=== PATIENT | male | born 1970 | race Caucasian/White ===

== ENCOUNTER 2023-08-02 10:05 | Inpatient (IN) | payer OTHER, SELFPAY ==
--- NOTE | ~2023-08-02 | US_ITS ---
EXAMINATION: US ABDOMEN LIMITED CLINICAL INFORMATION: Right upper quadrant/epigastric pain. COMPARISON: None available. TECHNIQUE: Real-time imaging of the right upper quadrant abdominal viscera. Limited evaluation due to overlying bowel gas and rib shadowing. FINDINGS: LIVER: Liver was not formally interrogated but appears diffusely echogenic. GALLBLADDER: Contracted. Wall measures 6 mm with potential fluid. Shadowing stone in the region of the gallbladder neck. No tenderness elicited during study. COMMON BILE DUCT: Normal in caliber measuring 0.3 cm in diameter. FREE FLUID: None. US/US abdomen limited IMPRESSION: Contracted gallbladder. Gallbladder wall thickening. Gallbladder neck stone.
--- NOTE | ~2023-08-02 | CT_ITS ---
EXAMINATION: CT ABDOMEN AND PELVIS WITHOUT CONTRAST CLINICAL INFORMATION: Abdominal pain and diarrhea COMPARISON: None available. TECHNIQUE: Multidetector volumetric imaging was performed from the superior aspect of the liver through the pubic symphysis. Sagittal and coronal reformatted images were obtained on the technologist's workstation. This CT examination was performed using dose optimization techniques as appropriate, variously including the following: *Automated exposure control *Adjustment of mA and/or kV according to patient size (this includes techniques or standardized protocols for targeted exams where dose is matched to indication/reason for exam; i.e. extremities or head) *Use of iterative reconstruction technique DLP: 566 mGy-cm FINDINGS: TELEVISION PRODUCTION ASSISTANT: Moderate fecal retention. LUNG BASES: The visualized lung bases are unremarkable. Nonenlarged heart. No pericardial effusion. Heavy coronary calcifications. LIVER, GALLBLADDER, AND BILIARY TREE: The liver is normal in size, shape, and attenuation. No focal hepatic lesion or biliary ductal dilatation is present. Cholelithiasis without other CT evidence of gallbladder wall thickening, or obvious pericholecystic inflammatory changes. PANCREAS: Unremarkable. SPLEEN: Unremarkable. ADRENAL GLANDS: Unremarkable. KIDNEYS AND URETERS: The kidneys are normal in size, shape, and attenuation. No hydronephrosis or hydroureter. 4 mm nonobstructing right midpole renal calculus. Punctate nonobstructing left mid pole renal calculus. Nonspecific mild bilateral perinephric stranding. BLADDER: Distended. GASTROINTESTINAL TRACT: Distended with debris, otherwise unremarkable. Nonobstructive bowel pattern. Normal terminal ileum and appendix. Moderate fecal retention. No fluid-filled large bowel loops. ABDOMINAL WALL: Small fat filled umbilical hernia. LYMPH NODES: Normal. VASCULAR: Atherosclerotic calcifications nonaneurysmal aorta. Unremarkable inferior vena cava PELVIC VISCERA: Prostate calcifications. Phleboliths. OSSEOUS STRUCTURES: L5-S1 disc space narrowing with vacuum disc phenomena. CT/CT abdomen pelvis wo IV con IMPRESSION: Moderate fecal retention. Cholelithiasis without CT evidence of acute cholecystitis. Nonobstructing renal calculi, largest in the right midpole measures 4 mm. Distended urinary bladder. Fleischner guidelines were followed.
[2023-08-02 10:21] VITALS: BP 139/90; PULSE 100; RESP 16; TEMP 36.4; O2SAT 100; BMI 27.1
--- NOTE | 2023-08-02 10:30 | ECG_ITS ---
Test Reason : diarrhea, cardiac hx Blood Pressure : / mmHG Vent. Rate : 095 BPM Atrial Rate : 095 BPM P-R Int : 174 ms QRS Dur : 074 ms QT Int : 340 ms P-R-T Axes : 021 003 070 degrees QTc Int : 427 ms Normal sinus rhythm Possible Inferior infarct , age undetermined Nonspecific T wave abnormality Abnormal ECG T wave amplitude has decreased in Referred By: Generic ED Physician Electronically Signed By:LUIS CARLOS NEWTON MD
[2023-08-02 10:50] LABS: MANUAL DIFF FLAG NO
[2023-08-02 10:53] LABS: Appearance Urine Cloudy; Color Urine Yellow; Glucose Urine UA >=1000 mg/dL (Negative); Leukocyte Esterase Urine Negative (Negative); Nitrite Urine Negative (Negative); PH 5.5 (5.0-9.0); Specific Gravity - Urine 1.025 (1.005-1.025); UMIC TRIGGER UACC YES; Urine Blood Small (1+) (Negative); Urine Ketones Negative (Negative); Urine Protein 300 (3+) mg/dL (Neg-Trace)
[2023-08-02 10:55] LABS: Basophils Percent Auto 0.5 % (0-2); Eosinophils Absolute Auto 0.1 X10*3/uL (0.0-0.4); Eosinophils Percent Auto 2.2 % (0-4); Hematocrit 41.2 % (42.0-52.0); Hemoglobin 13.6 g/dl (14.0-18.0); Imm Gran Abs Auto 0.05 X10*3/uL (0.00-0.03); Imm Gran Pct Auto 0.8 % (0.0-0.4); Lymphocytes Absolute Auto 1.2 X10*3/uL (1.2-4.9); Lymphocytes Percent Auto 18.4 % (20-40); Mean Corpuscular Hemoglobin 27.6 pg (27.0-33.0); Mean Corpuscular Volume 83.6 fL (80.0-98.0); Mean Platelet Volume 9.2 fL (9.4-12.4); Monocytes Absolute Auto 0.5 X10*3/uL (0.1-1.2); Neutrophils Absolute Auto 4.6 x10*3/uL (2.0-8.3); Neutrophils Percent Auto 71.1 % (45-73); Platelet Count 244 X10*3/uL (160-400); Red Blood Count 4.93 X10*6/uL (4.60-5.80); White Blood Count 6.5 X10*3/uL (4.8-10.8)
[2023-08-02 11:05] LABS: Bacteria Urine None Seen (None Seen); RBC Urine 0-2 /HPF (0-2); Squamous Epithelial Cell Urine 0-2 /HPF (0-2); WBC Urine 0-5 /HPF (0-5)
[2023-08-02 11:06] LABS: Alanine Aminotransferase 55 U/L (0-40); Albumin Level 4.5 g/dL (3.5-5.0); Alkaline Phosphatase 97 U/L (39-117); Anion Gap 16 (12-20); Aspartate Amino Transferase 31 U/L (5-37); Bilirubin Direct 0.2 mg/dL (0.0-0.5); Bilirubin Total 0.5 mg/dL (0.0-1.0); Blood Urea Nitrogen 19 mg/dL (9-16); Calcium 9.7 mg/dL (8.4-10.2); Carbon Dioxide 21 mmol/L (22-29); Chloride 106 mmol/L (96-108); Creatinine Clr Calc Pharmacy 46.3; Estimated Glomerular Filt Rate 39; Glucose Random 215 mg/dL (60-115); Lipase 225 U/L (8-78); Potassium 3.9 mmol/L (3.3-5.1); Sodium 139 mmol/L (135-145); Total Protein 7.3 g/dL (6.5-8.0)
[2023-08-02 11:20] LABS: Troponin-I High Sensitivity < 2.7 ng/L (<3.5-35.0)
[2023-08-02 11:52] LABS: Erythrocyte Sedimentation Rate 7 MM/HR (0-15)
--- NOTE | 2023-08-02 13:46 | ED.GENADULT ---
HPI - General Adult General Chief complaint: General Medical Stated complaint: 5 months diarrhea,abd pain,fever Time Seen by Provider: 08/02/23 13:12 Source: patient Mode of arrival: ambulatory History of Present Illness HPI narrative: This is a 53-year-old male with history CKD followed by Dr. Downey, diabetes, HIV on Biktarvy and currently undetectable, all of his care is conducted through [facility]. Patient states that he had 2 stents placed in February and then began developing this intermittent diarrhea that has been worked up by his primary care doctor, he has been unable to be evaluated by a manager property, and states that this is been intermittent and ongoing since February and then over the past few days has become far worse in describes 5-6 episodes of diarrhea a day, patient is currently on Brilinta and states that he did have some evidence of blood within his stool. He denies any associated fever, chills denies any alcohol use denies any recent travel. Patient reports that this time the diarrhea has been associated with significant left upper quadrant and lower quadrant pain as well as epigastric pain. Related Data Allergies Allergy/AdvReac Type Severity Reaction Status Date / Time Unable to Assess Allergy Unverified 08/02/23 10:41 Review of Systems Review of Systems: Pertinent positives and negatives as stated in HPI [facility] Past Medical History Source: nursing notes reviewed Social History Social History Smoked in Last 30 Days: No Use of substances other than those prescribed or required for medical reasons: No Advance Directives: No Physical Exam ED Vital Signs: Vital Signs - 24 hr 08/02/23 10:21 08/02/23 15:08 08/02/23 16:37 Temperature 97.5 F Pulse Rate 100 91 Respiratory Rate 16 18 1 L Blood Pressure 139/90 H 127/84 Pulse Oximetry 100 99 Oxygen Delivery Method Room Air Room Air Room Air 08/02/23 16:39 Temperature Pulse Rate 91 Respiratory Rate Blood Pressure 105/56 L Pulse Oximetry 100 Oxygen Delivery Method Room Air BMI result Body Mass Index 27.1 VITAL SIGNS: Reviewed. GENERAL: Well developed, well nourished, in no acute distress. HEAD: Normocephalic/atraumatic EYES: PERRLA, EOMI EARS: Ext canals without abnormality NOSE: Nares patent bilateral OROPHARYNX: no oral lesions noted, posterior pharynx clear NECK: Supple, no adenopathy LUNGS: Normal breath sounds. No adventitious sounds or accessory muscle use. SpO2<100> CARDIOVASCULAR: Regular rate and rhythm without noted murmurs ABDOMEN: Soft, tenderness to palpation the epigastrium and left upper quadrant, +distended with bowel sounds. MUSCULOSKELETAL: No tenderness, deformities, or effusions noted on gross inspection. EXTREMITIES: No cyanosis, clubbing or edema. SKIN: Inspection of the skin reveals no rashes NEUROLOGIC: Alert and oriented x 4. Strength and sensation to light touch were grossly intact x 4. Medications Administered Discontinued Medications Generic Name Dose Route Start Last Admin Trade Name Freq PRN Reason Stop Dose Admin Sodium Chloride 1,000 mls @ 999 mls/hr 08/02/23 13:15 08/02/23 15:13 Ns IV 08/02/23 14:15 Infused .Q1H1M PETRA Infusion Medical Decision Making Medical Decision Making [facility] Narrative: 1330: 53-year-old male with history and clinical presentation, DDX: Gastroenteritis, diverticulitis, colitis, biliary pancreatitis, medication pancreatitis I reviewed all investigations and there is no leukocytosis or left shift, there is a normocytic anemia without significant reports of bleeding and on review of patient's prior lab work that was reviewed by me on his phone this is chronically stable. There is no thrombocytopenia. Chemistry indices demonstrate a stable CKD (once again I reviewed this on patient's [facility] chart) there is no evidence of electrolyte derangements and I sensitivity troponin is undetectable, triglycerides are not in the range to have been the cause of patient's pancreatitis which is demonstrated by both clinical exam as well as lipase elevation of 225. Patient does not have complaints of right upper quadrant pain so I have lower clinical suspicion that this is biliary pancreatitis. Awaiting CT scan without contrast as well as stool sample. CT scan not significant for acute intra-abdominal pathology to better explain patient's condition, although this had to be noncontrast secondary to patient's underlying CKD. There was noted cholelithiasis which prompted further evaluation with an ultrasound due to other obvious etiologies for the pancreatitis. Ultrasound is significant for a gallbladder neck stone as well as thickening and questionable fluid. 1617: I discussed the case with Dr. Godoy who accepts admission. I then discussed all results and findings as well as the plan with the patient at bedside. Differential Diagnosis Differential Diagnoses: The differential diagnosis associated with the presentation includes Please see the discussion above Admission/Observation Consideration of admission/observation: Escalation of care including admission/observation considered Please see the discussion above Consult Healthcare Provider Management of the patient was discussed with: [facility]rer And Tacker Please see the discussion above Lab Data MDM Lab Attestation statement: I reviewed the patient's lab results. Please see the discussion above 08/02/23 10:40 08/02/23 10:40 Labs: Lab Results 08/02/23 08/02/23 08/02/23 Range/Units 10:40 10:40 10:40 WBC 6.5 (4.8-10.8) X10*3/uL RBC 4.93 (4.60-5.80) X10*6/uL Hgb 13.6 L (14.0-18.0) g/dl Hct 41.2 L (42.0-52.0) % MCV 83.6 (80.0-98.0) fL MCH 27.6 (27.0-33.0) pg MCHC 33.0 (31.0-36.0) g/dl RDW 14.0 (11.0-16.0) % Plt Count 244 (160-400) X10*3/uL MPV 9.2 L (9.4-12.4) fL Immature Gran % (Auto) 0.8 H (0.0-0.4) % Neut % (Auto) 71.1 (45-73) % Lymph % (Auto) 18.4 L (20-40) % [place] % (Auto) 7.0 (2-11) % Eos % (Auto) 2.2 (0-4) % Baso % (Auto) 0.5 (0-2) % Lymph # (Auto) 1.2 (1.2-4.9) X10*3/uL [place] # (Auto) 0.5 (0.1-1.2) X10*3/uL Eos # (Auto) 0.1 (0.0-0.4) X10*3/uL Baso # (Auto) 0.0 (0.0-0.2) X10*3/uL Abs Immat Gran (auto) 0.05 H (0.00-0.03) X10*3/uL Absolute Neuts (auto) 4.6 (2.0-8.3) x10*3/uL Absolute Nucleated RBC 0.000 (0.0-0.012) X10*3/uL Nucleated RBC % (auto) 0.0 (0.0-0.2) /100WBC ESR 7 (0-15) MM/HR Sodium 139 (135-145) mmol/L Potassium 3.9 (3.3-5.1) mmol/L Chloride 106 (96-108) mmol/L Carbon Dioxide 21 L (22-29) mmol/L Anion Gap 16 (12-20) BUN 19 H (9-16) mg/dL Creatinine 1.80 H (0.5-1.4) mg/dL Estim Creat Clear Calc 46.3 Estimated GFR 39 Random Glucose 215 H (60-115) mg/dL Calcium 9.7 (8.4-10.2) mg/dL Magnesium 2.1 Cancelled (1.6-2.6) mg/dL Total Bilirubin 0.5 (0.0-1.0) mg/dL Direct Bilirubin 0.2 (0.0-0.5) mg/dL AST 31 (5-37) U/L ALT 55 H (0-40) U/L Alkaline Phosphatase 97 (39-117) U/L Troponin I High Sens < 2.7 (<3.5-35.0) ng/L Total Protein 7.3 (6.5-8.0) g/dL Albumin 4.5 (3.5-5.0) g/dL Triglycerides 153 H Cancelled (<150) mg/dL Cholesterol 89 (<200) mg/dL LDL Cholesterol, Calc (<100) mg/dL HDL Cholesterol (>40) mg/dL Lipase (8-78) U/L Urine Color Urine Appearance Urine pH (5.0-9.0) Ur Specific [place] (1.005-1.025) Urine Protein (Neg-Trace) mg/dL Urine Glucose (UA) (Negative) mg/dL Urine Ketones (Negative) mg/dL Urine Blood (Negative) Urine Nitrite (Negative) Ur Leukocyte Esterase (Negative) Urine RBC (0-2) /HPF Urine WBC (0-5) /HPF Ur Squamous Epith Cells (0-2) /HPF Urine Bacteria (None Seen) Hyaline Casts (0-2) /LPF 08/02/23 08/02/23 08/02/23 Range/Units 10:40 10:40 10:40 WBC (4.8-10.8) X10*3/uL RBC (4.60-5.80) X10*6/uL Hgb (14.0-18.0) g/dl Hct (42.0-52.0) % MCV (80.0-98.0) fL MCH (27.0-33.0) pg MCHC (31.0-36.0) g/dl RDW (11.0-16.0) % Plt Count (160-400) X10*3/uL MPV (9.4-12.4) fL Immature Gran % (Auto) (0.0-0.4) % Neut % (Auto) (45-73) % Lymph % (Auto) (20-40) % [place] % (Auto) (2-11) % Eos % (Auto) (0-4) % Baso % (Auto) (0-2) % Lymph # (Auto) (1.2-4.9) X10*3/uL [place] # (Auto) (0.1-1.2) X10*3/uL Eos # (Auto) (0.0-0.4) X10*3/uL Baso # (Auto) (0.0-0.2) X10*3/uL Abs Immat Gran (auto) (0.00-0.03) X10*3/uL Absolute Neuts (auto) (2.0-8.3) x10*3/uL Absolute Nucleated RBC (0.0-0.012) X10*3/uL Nucleated RBC % (auto) (0.0-0.2) /100WBC ESR (0-15) MM/HR Sodium (135-145) mmol/L Potassium (3.3-5.1) mmol/L Chloride (96-108) mmol/L Carbon Dioxide (22-29) mmol/L Anion Gap (12-20) BUN (9-16) mg/dL Creatinine (0.5-1.4) mg/dL Estim Creat Clear Calc Estimated GFR Random Glucose (60-115) mg/dL Calcium (8.4-10.2) mg/dL Magnesium (1.6-2.6) mg/dL Total Bilirubin (0.0-1.0) mg/dL Direct Bilirubin (0.0-0.5) mg/dL AST (5-37) U/L ALT (0-40) U/L Alkaline Phosphatase (39-117) U/L Troponin I High Sens (<3.5-35.0) ng/L Total Protein (6.5-8.0) g/dL Albumin (3.5-5.0) g/dL Triglycerides (<150) mg/dL Cholesterol Cancelled (<200) mg/dL LDL Cholesterol, Calc 22 Cancelled (<100) mg/dL HDL Cholesterol 37 L Cancelled (>40) mg/dL Lipase 225 H (8-78) U/L Urine Color Urine Appearance Urine pH (5.0-9.0) Ur Specific [place] (1.005-1.025) Urine Protein (Neg-Trace) mg/dL Urine Glucose (UA) (Negative) mg/dL Urine Ketones (Negative) mg/dL Urine Blood (Negative) Urine Nitrite (Negative) Ur Leukocyte Esterase (Negative) Urine RBC (0-2) /HPF Urine WBC (0-5) /HPF Ur Squamous Epith Cells (0-2) /HPF Urine Bacteria (None Seen) Hyaline Casts (0-2) /LPF 08/02/23 Range/Units 10:46 WBC (4.8-10.8) X10*3/uL RBC (4.60-5.80) X10*6/uL Hgb (14.0-18.0) g/dl Hct (42.0-52.0) % MCV (80.0-98.0) fL MCH (27.0-33.0) pg MCHC (31.0-36.0) g/dl RDW (11.0-16.0) % Plt Count (160-400) X10*3/uL MPV (9.4-12.4) fL Immature Gran % (Auto) (0.0-0.4) % Neut % (Auto) (45-73) % Lymph % (Auto) (20-40) % [place] % (Auto) (2-11) % Eos % (Auto) (0-4) % Baso % (Auto) (0-2) % Lymph # (Auto) (1.2-4.9) X10*3/uL [place] # (Auto) (0.1-1.2) X10*3/uL Eos # (Auto) (0.0-0.4) X10*3/uL Baso # (Auto) (0.0-0.2) X10*3/uL Abs Immat Gran (auto) (0.00-0.03) X10*3/uL Absolute Neuts (auto) (2.0-8.3) x10*3/uL Absolute Nucleated RBC (0.0-0.012) X10*3/uL Nucleated RBC % (auto) (0.0-0.2) /100WBC ESR (0-15) MM/HR Sodium (135-145) mmol/L Potassium (3.3-5.1) mmol/L Chloride (96-108) mmol/L Carbon Dioxide (22-29) mmol/L Anion Gap (12-20) BUN (9-16) mg/dL Creatinine (0.5-1.4) mg/dL Estim Creat Clear Calc Estimated GFR Random Glucose (60-115) mg/dL Calcium (8.4-10.2) mg/dL Magnesium (1.6-2.6) mg/dL Total Bilirubin (0.0-1.0) mg/dL Direct Bilirubin (0.0-0.5) mg/dL AST (5-37) U/L ALT (0-40) U/L Alkaline Phosphatase (39-117) U/L Troponin I High Sens (<3.5-35.0) ng/L Total Protein (6.5-8.0) g/dL Albumin (3.5-5.0) g/dL Triglycerides (<150) mg/dL Cholesterol (<200) mg/dL LDL Cholesterol, Calc (<100) mg/dL HDL Cholesterol (>40) mg/dL Lipase (8-78) U/L Urine Color Yellow Urine Appearance Cloudy Urine pH 5.5 (5.0-9.0) Ur Specific [place] 1.025 (1.005-1.025) Urine Protein 300 (3+) H (Neg-Trace) mg/dL Urine Glucose (UA) >=1000 H (Negative) mg/dL Urine Ketones Negative (Negative) mg/dL Urine Blood Small (1+) H (Negative) Urine Nitrite Negative (Negative) Ur Leukocyte Esterase Negative (Negative) Urine RBC 0-2 (0-2) /HPF Urine WBC 0-5 (0-5) /HPF Ur Squamous Epith Cells 0-2 (0-2) /HPF Urine Bacteria None Seen (None Seen) Hyaline Casts 11-20 (0-2) /LPF Independent Interpretation I performed an independent interpretation of an: EKG Interpretation: Normal sinus rhythm, HR-95, no STEMI, NV/QRS/QTC are within normal limits. Radiology Impression Discussion of test interpretation with radiology: I have reviewed the radiologist's reading. Radiologist Impression: Please see the discussion above External Record Review External record reviewed: Outpatient record, Prior outpatient labs and Other Outside lab work Chronic Conditions Patient?s care impacted by: Diabetes HIV, CKD Critical Care Time Critical Care Time Critical Care Time: Yes Total Critical Care Time: 60 Attestation: I personally attest to this time spent taking care of the patient. Discharge Plan Discharge Clinical Impression: Acute biliary pancreatitis Patient Disposition: Admitted As Inpatient
[2023-08-02] MEDS: 0.9 % Sodium Chloride 1,000 ML 999 ML IV (13:55)
[2023-08-02 14:13] LABS: Cholesterol 89 mg/dL (<200); HDL Cholesterol 37 mg/dL (>40); LDL Cholesterol Calculated 22 mg/dL (<100); Magnesium 2.1 mg/dL (1.6-2.6); Triglycerides 153 mg/dL (<150)
[2023-08-02 15:08] VITALS: BP 127/84; PULSE 91; RESP 18; O2SAT 99
--- NOTE | 2023-08-02 15:16 | PC.NURSE ---
pt is alert and oriented, skin appropriate for ethnicity, respirations even and unlabored, pt reports having diarrhea for the last 15 days, three times pt noticed dark blood in the stool, abd hard and distended with positive bowel sounds, pt reports upper/mid abd pain and left sided/flank pain. vs stable
[2023-08-02 16:37] VITALS: RESP 1
[2023-08-02 16:39] VITALS: BP 105/56; PULSE 91; O2SAT 100
--- NOTE | 2023-08-02 17:22 | PHA.MEDREC ---
Pharmacy Consult ? Medication Reconciliation Pharmacy has completed the medication reconciliation. Patient had medications. Reports he is unsure if he is suppose to be taking pantoprazole. Report no longer taking amlodipine and irbesartan was stopped by the neurologist. Shirin Roper, ReynaldoD
[2023-08-02 19:08] VITALS: BP 111/73; PULSE 81; RESP 18; O2SAT 98
[2023-08-02 19:25] LABS: Glucose, Whole Blood 71 mg/dL (60-115)
[2023-08-02 19:30] VITALS: TEMP 36.6
[2023-08-02 19:38] LABS: CDiff Gene PCR NEGATIVE (Negative)
[2023-08-02] MEDS: Dextrose 5 % and 0.9 % NaCl 1,000 ML 100 ML IVCONT (19:38)
--- NOTE | 2023-08-02 21:55 | PC.NURSE ---
this rn assumed care of pt @ 2129. pt calm ad cooperative. pt repositioned in bed. provided with callbell and tv remote pt denies additional needs at this time
[2023-08-03] MEDS: Dextrose 5 % and 0.9 % NaCl 1,000 ML 100 ML IVCONT ×3 (05:38→20:46)
[2023-08-03 05:45] VITALS: BP 130/75; PULSE 79; RESP 18; TEMP 36.3; O2SAT 96
[2023-08-03 06:03] LABS: Anion Gap 12 (12-20); Blood Urea Nitrogen 16 mg/dL (9-16); Calcium 9.1 mg/dL (8.4-10.2); Carbon Dioxide 20 mmol/L (22-29); Chloride 114 mmol/L (96-108); Creatinine Clr Calc Pharmacy 59.1; Estimated Glomerular Filt Rate 52; Glucose Random 97 mg/dL (60-115); Potassium 3.8 mmol/L (3.3-5.1); Sodium 142 mmol/L (135-145)
--- NOTE | 2023-08-03 06:42 | PC.NURSE ---
pt ambulatory independently throughout the night to restroom. pt calm and cooperative. lights dimmed
[2023-08-03 07:42] LABS: Glucose, Whole Blood 101 mg/dL (60-115)
--- NOTE | 2023-08-03 08:25 | MHC.CM.PN ---
PT REPORTS HE LIVES WITH HIS MOTHER AND IS INDEPENDENT WITH CARE HE DENIES USE OF DME OR HOME SERVICES PT WILL COMPLETE A HCP TODAY NAMING HIS MOTHER, BARBY CHATMAN, HIS AGENT PCP: [id number] JACKSON DCP: HOME NO SERVICES VIA SELF TRANSPORT
--- NOTE | 2023-08-03 08:34 | PM.HPGS ---
History of Present Illness History of Present Illness Date of Service: 08/03/23 Chief complaint: abdominal pain, diarrhea Narrative: Javid Salas is a 53 year old male with PMH of CKD, diabetes mellitus, CAD with stent placement on Brilinta, HIV on Biktarvy and currently undetectable who presented to the ED with c/o abdominal pain and diarrhea. He reports he has had interemittent diarrhea since February 2023 with left sided abdominal pain. He reports that over the past few days, his pain has worsened in severity and he also developed epigastric abdominal pain. He reports 5-6 episodes of diarrhea a day over the past few days and experienced some dizziness. He has occasionally noted blood within his stool. He has never had a colonoscopy before. He reportedly has a GI doctor at [facility] who has been refusing to see him. Work up in the ED included CBC, BMP and LFTs which was significant for Cr of 1.8 improved to 1.41 and ALT 55, lipase 288. CT abd/pelvis and US that showed gallstones, contracted gallbladder without wall thickening or fluid, no biliary ductal dilatation. This morning, he feels improved. He reports the epigastric pain has resolved and he has mild left sided abdominal pain. He is tolerating his clear liquids without nausea or vomiting. He denies any associated fever, chills, ETOH use. Review of Systems Constitutional: Constitutional: Denies chills, Denies fever(s) and Denies weight loss Cardiovascular: Cardiovascular: Denies chest pain and Denies dyspnea Respiratory: Respiratory: Denies dyspnea Gastrointestinal: Gastrointestinal: Reports as per HPI Genitourinary: Genitourinary: Denies dysuria Integumentary/Breasts: Skin/Breast: Denies rash and Denies jaundice [facility] Past Medical History Medical History (Updated 08/03/23 @ 09:41 by Misty Barth PA-C) CAD (coronary artery disease) CKD (chronic kidney disease) HIV (human immunodeficiency virus infection) Social History Social History Patient Tobacco Use Status: Never used Tobacco Smoked in Last 30 Days: No Use of substances other than those prescribed or required for medical reasons: No Advance Directives: No Nutrition Risks: Acute nausea or vomiting x1 week service: No Meds Allergies Allergy/AdvReac Type Severity Reaction Status Date / Time sertraline [From Zoloft] Allergy Unknown Verified 08/02/23 19:35 Active Medications: Current Medications Acetaminophen (Acetaminophen 325 Mg Tablet) 650 mg PO Q6H PRN PRN Reason: Pain, Mild (Pain Scale 1-3) Al Hydroxide/Mg Hydroxide (Magnesium Hydrox/Alum Hydrox 30 Ml Oral.Susp) 30 ml PO Q4H PRN PRN Reason: Heartburn/Nausea Bictegravir/Emtricitabine/Tenofovir (Bictegrav/Emtricit/Tenofov Ala Tablet) 1 tab PO BEDTIME [facility] Dextrose (Dextrose 50 % 25 Gm/50 Ml Syringe) 25 gm IVPUSH Q15M PRN; Protocol PRN Reason: per Hypoglycemia Standing Ord. Glucose (Glucose Gel 15 Gm Gel..Gram.) 15 gm PO Q15M PRN; Protocol PRN Reason: per Hypoglycemia Standing Ord. Hydromorphone HCl (Hydromorphone Hcl 1 Mg/Ml Syringe) 0.5 mg IVPUSH Q4H PRN; Protocol PRN Reason: Pain, Severe (Pain Scale 7-10) Dextrose/Sodium Chloride (D5ns) 1,000 mls @ 100 mls/hr IVCONT .Q10H [facility] Last Admin: 08/03/23 05:38 Dose: 100 mls/hr Insulin Human Lispro (Insulin Lispro 100 Unit/Ml 3 Ml Vial) 0 unit SUBCUT QIDACHS [facility]; Protocol Last Admin: 08/03/23 07:49 Dose: Not Given Magnesium Hydroxide (Milk Of Magnesia 30 Ml Oral.Susp) 30 ml PO DAILY PRN PRN Reason: Constipation Metoprolol Succinate (Metoprolol Succinate Er 50 Mg Tab.Er.24h) 50 mg PO BEDTIME [facility]; Protocol Metoprolol Succinate (Metoprolol Succinate Er 100 Mg Tab.Er.24h) 100 mg PO DAILY [facility]; Protocol Ondansetron HCl (Ondansetron Hcl 4 Mg/2 Ml Vial) 4 mg IVPUSH Q8H PRN PRN Reason: Nausea and Vomiting Oxycodone HCl (Oxycodone Hcl Immed Release 5 Mg Tablet) 5 mg PO Q4H PRN PRN Reason: Pain, Moderate(Pain Scale 4-6) Sodium Chloride (0.9 % Sodium Chloride Flush 3 Ml Syringe) 3 ml IVFLUSH QSHIFT [facility] Last Admin: 08/03/23 00:22 Dose: Not Given Zolpidem Tartrate (Zolpidem Tartrate 5 Mg Tablet) 5 mg PO BEDTIME PRN PRN Reason: Insomnia Home Medications Medication Instructions Recorded Confirmed Last Taken Type aspirin 81 mg chewable tablet 1 tab PO DAILY 08/02/23 08/02/23 08/02/23 History bictegravir 50 mg-emtricitabine 1 tab PO BEDTIME 08/02/23 08/02/23 08/01/23 History 200 mg-tenofovir alafenam 25 mg tablet (Biktarvy) dulaglutide 1.5 mg/0.5 mL 1.5 mg subcut FR 08/02/23 08/02/23 07/28/23 History subcutaneous pen injector (Trulicity) empagliflozin 12.5 mg-metformin 1 tab PO BID 08/02/23 08/02/23 08/02/23 History 1,000 mg tablet (Synjardy) glimepiride 2 mg tablet 4 mg PO DAILY 08/02/23 08/02/23 08/02/23 History metoprolol succinate 100 mg 100 mg PO DAILY 08/02/23 08/02/23 08/02/23 History tablet,extended release 24 hr metoprolol succinate 50 mg 50 mg PO BEDTIME 08/02/23 08/02/23 08/01/23 History tablet,extended release 24 hr rosuvastatin 40 mg tablet 40 mg PO BEDTIME 08/02/23 08/02/23 08/01/23 History ticagrelor 90 mg tablet (Brilinta) 90 mg PO BID 08/02/23 08/02/23 08/02/23 History Physical Exam Vital Signs: Vital Signs: Last Vital Signs Temp 97.4 F 08/03/23 05:45 Pulse 79 08/03/23 05:45 Resp 18 08/03/23 05:45 BP 130/75 08/03/23 05:45 Pulse Ox 96 08/03/23 05:45 O2 Del Method Room Air 08/03/23 05:45 BMI result Body Mass Index 27.1 Const: General: comfortable, no acute distress and alert Orientation/consciousness: patient oriented x3 Resp: Effort & Inspection: normal respiratory effort GI: Inspection: Yes distended and No scar Palpation (GI): Soft to palpation, Tenderness to palpation present (GI) (very mild left upper and lower quadrant tenderness to deep palpation), no guarding and not rigid Percussion: Yes normal to percussion Skin: General skin exam: no rashes or lesions noted and no jaundice Neuro: General: patient oriented x3 and moves all extremities Results Results Labs: Short CBC 08/02/23 Range/Units 10:40 WBC 6.5 (4.8-10.8) X10*3/uL Hgb 13.6 L (14.0-18.0) g/dl Hct 41.2 L (42.0-52.0) % Plt Count 244 (160-400) X10*3/uL BMP 08/02/23 08/03/23 10:40 05:33 Sodium 139 142 Potassium 3.9 3.8 Chloride 106 114 H Carbon Dioxide 21 L 20 L BUN 19 H 16 Creatinine 1.80 H 1.41 H Calcium 9.7 9.1 D Liver Function 08/02/23 Range/Units 10:40 Total Bilirubin 0.5 (0.0-1.0) mg/dL Direct Bilirubin 0.2 (0.0-0.5) mg/dL AST 31 (5-37) U/L ALT 55 H (0-40) U/L Alkaline Phosphatase 97 (39-117) U/L Albumin 4.5 (3.5-5.0) g/dL Urine 08/02/23 Range/Units 10:46 Urine Color Yellow Urine Appearance Cloudy Urine pH 5.5 (5.0-9.0) Ur Specific Seffner 1.025 (1.005-1.025) Urine Protein 300 (3+) H (Neg-Trace) mg/dL Urine Glucose (UA) >=1000 H (Negative) mg/dL Assessment and Plan (1) Diarrhea: Status: Acute (2) Pancreatitis, acute: Status: Acute (3) Acute kidney injury superimposed on CKD: Status: Acute Plan 53 year old male with PMH of CKD, diabetes mellitus, CAD with stent placement on Brilinta, HIV who presented to the ED with acute worsening of abdominal pain and diarrhea with elevated lipase on labs. Currently no acute surgical issues. He did have epigastric pain with elevated lipase suggestive of pancreatitis however no biliary ductal dilatation or significantly elevated LFTs to suggest gallstone as source. Pancreatitis appears resolved at this point as he denies further epigastric pain and he is nontender. Will obtain GI consult to evaluate. Cont clear liquids for now. Stool studies pending. Will cont to hold Brilinta for now until sure no colonoscopy, surgical intervention necessary. CHLOÉ on CKD likely secondary to dehydration to GI losses. Improved with IVF. Time Spent With Patient Time: Total time managing care of this patient today ____ minutes. Quality Stroke Does the patient have a stroke diagnosis?: No VTE Prior VTE?: No VTE Risk Level:: Surgical - low VTE Device Contraindication: Treatment Not Indicated VTE Drug Contraindication: Treatment Not Indicated Procedures Date of Service Date of Service: 08/03/23
[2023-08-03] MEDS: Metoprolol Succinate ER 100 MG TAB.ER.24H PO (08:42)
[2023-08-03 10:04] LABS: Adenovirus F 40/41 Not Detected (Not Detect.); Astrovirus Not Detected (Not Detect.); Campylobacter Not Detected (Not Detect.); Cryptosporidium Not Detected (Not Detect.); Cyclospora cayetanensis Not Detected (Not Detect.); E. coli EAEC Not Detected (Not Detect.); E. coli EPEC Not Detected (Not Detect.); E. coli ETEC Not Detected (Not Detect.); E. coli STEC Not Detected (Not Detect.); Entamoeba histolytica Not Detected (Not Detect.); Giardia lamblia Not Detected (Not Detect.); Norovirus GI/GII Not Detected (Not Detect.); Plesiomonas shigelloides Not Detected (Not Detect.); Rotavirus A Not Detected (Not Detect.); Salmonella Not Detected (Not Detect.); Sapovirus Not Detected (Not Detect.); Shigella sp./EIEC Not Detected (Not Detect.); Vibrio Not Detected (Not Detect.); Vibrio Cholerae Not Detected (Not Detect.); Yersinia enterocolitica Not Detected (Not Detect.)
[2023-08-03 11:45] LABS: Glucose, Whole Blood 159 mg/dL (60-115)
[2023-08-03 12:04] LABS: CRP High Sensitivity 0.5 mg/L
--- NOTE | 2023-08-03 13:51 | P.CDIM_ITS ---
PROVIDER RESPONSE TEXT: To clarify, the appropriate diagnosis supported by the clinical indicators: Acute kidney injury (non-traumatic) QUERY TEXT: PHYSICIAN'S DOCUMENTATION REQUEST Date of Query: 08/03/2023 01:36 PM EDT Patient Name: Javid Kincaid Admit Date: 08/02/2023 Dear Ej Godoy, A review of the medical record indicates additional documentation may be needed. Please review below and update the documentation accordingly. Clinical Indicators: PMH CKD On 08/02/23: BUN 19 Creatinine 1.80 EST GFR 39 Per General Surgery H&P 08/03/23: CHLOÉ on CKD likely secondary to dehydration to GI losses. Improved with IVF. Please clarify which of the following accurately represents the patient's renal status: Acute renal failure Acute renal failure with suspected ATN Acute renal failure with other pathology (medullary, papillary, or cortical necrosis) Acute renal failure (with type, appropriate) on Chronic Kidney Disease (CKD) Acute kidney injury (non-traumatic) CKD, please provide stage ESRD - CKD V now requiring permanent dialysis and/or transplant Other (explain)Clinically unable to determine (explain)Thank you, Jodie Tolbert RN Use of terms such as suspected, likely, concern for, or probable (associated with a specific diagnosi s that is being evaluated, monitored, or treated as if it exists) are acceptable and can be coded in the inpatient se tting, when documented at the time of discharge. Please use your independent medical judgment in providing your response. THIS QUERY IS PART OF THE PERMANENT MEDICAL RECORD
[2023-08-03 16:49] LABS: Glucose, Whole Blood 100 mg/dL (60-115)
--- NOTE | 2023-08-03 17:32 | PC.NURSE ---
Pt A/Ox4. Pleasant and cooperative. Independently ambulating. IVF infusing per orders. Seen by Dr. Godoy this AM. Brilanta remains on hold and pt continues on clear liquids. Awaiting GI consult and bed on med surg
[2023-08-03 19:59] VITALS: BMI 26.0
[2023-08-03 20:00] VITALS: BP 140/71; PULSE 90; RESP 20; TEMP 36.4; O2SAT 96
[2023-08-03] MEDS: Metoprolol Succinate ER 50 MG TAB.ER.24H PO (20:44)
[2023-08-03] MEDS: Bictegrav/Emtricit/Tenofov Ala TABLET 1 TAB PO (20:44)
[2023-08-03] MEDS: 0.9 % Sodium Chloride Flush 3 ML SYRINGE IVFLUSH (20:45)
[2023-08-03 20:47] LABS: Glucose, Whole Blood 101 mg/dL (60-115)
[2023-08-03] MEDS: Acetaminophen 325 MG TABLET 650 MG PO (20:54)
[2023-08-03] MEDS: oxyCODONE HCl Immed Release 5 MG TABLET PO (23:32)
[2023-08-04 03:47] VITALS: BP 110/66; PULSE 78; RESP 16; TEMP 36.2; O2SAT 97
[2023-08-04] MEDS: Dextrose 5 % and 0.9 % NaCl 1,000 ML 100 ML IVCONT (05:40)
[2023-08-04] MEDS: oxyCODONE HCl Immed Release 5 MG TABLET PO (05:41)
[2023-08-04 07:35] VITALS: BP 130/80; PULSE 78; RESP 18; TEMP 36.5; O2SAT 100
[2023-08-04 07:45] LABS: Glucose, Whole Blood 124 mg/dL (60-115)
[2023-08-04] MEDS: Metoprolol Succinate ER 100 MG TAB.ER.24H PO (08:35)
--- NOTE | 2023-08-04 09:45 | P.CNGI_ITS ---
History of Present Illness Data of Consult Service Date: 08/04/23 Requesting physician: Ej Godoy Primary Care Provider: Mackenzie Díaz MD HPI Reason for consult: gallstone pancreatitis 53 year old male with PMH of CKD, diabetes mellitus, CAD with stent placement on Brilinta, HIV on Biktarvy with undetectable VL who I am seeing for assessment for gallstone pancreatitis. Patient presents with dull aching epigastric abdominal pain, worse with food with 5-6 episodes of diarrhea a day with small amounts of blood noted mixed with stool. He denies any associated fever, chills, ETOH use. no nausea. Of note he had several cardiac stents placed 03/07 and placed brilinta and aspirin with instructions not to stop for 1 year. SInce admission he has felt the pain get better and managing some PO diet. Labs: CBC, BMP and LFTs significant for Cr of 1.8 improved to 1.41 and ALT 55, lipase 288 Imaging: CT abd/pelvis and US that showed gallstones, contracted gallbladder without wall thickening or fluid, no biliary ductal dilatation Review of Systems 2 Review of Systems: Constitutional : No Weight loss, No Fever, No Chills ENT/Mouth : No sore throat, No Rhinorrhea Eyes: No Swelling, No Redness Cardiovascular : No Chest Pain, No SOB, No Edema Respiratory : No Cough, No Sputum, No Wheezing Gastrointestinal : see HPI Genitourinary : NO Dysuria, No Urinary Frequency, No Hematuria, No Urgency Musculoskeletal : No joint pain, No Myalgias, No Joint Swelling Skin : No Skin Lesions, No rash Neuro : No Weakness, No Numbness, No Dizziness, No Headache Psych : No Anxiety/Panic, No Depression Heme/Lymph: No Bruising, No Lymphadenopathy Endocrine : No Polyuria, No Polydipsia All other systems reviewed and are negative. [facility] Past Medical History Medical History (Updated 08/04/23 @ 13:59 by Cindy Valdovinos MD) CAD (coronary artery disease) CKD (chronic kidney disease) HIV (human immunodeficiency virus infection) Family History Pertinent family history: pos FH of colon ca, pancreas ca and stomach ca Social History Social History Household Members: None Housing: Apartment Do you presently have visiting nurse or other home services: No Patient Tobacco Use Status: Never used Tobacco Advance Directives Date on File: 08/03/23 service: No Meds Allergies Allergy/AdvReac Type Severity Reaction Status Date / Time sertraline [From Zoloft] Allergy Unknown Verified 08/02/23 19:35 Active Medications: Current Medications Acetaminophen (Acetaminophen 325 Mg Tablet) 650 mg PO Q6H PRN PRN Reason: Pain, Mild (Pain Scale 1-3) Last Admin: 08/03/23 20:54 Dose: 650 mg Al Hydroxide/Mg Hydroxide (Magnesium Hydrox/Alum Hydrox 30 Ml Oral.Susp) 30 ml PO Q4H PRN PRN Reason: Heartburn/Nausea Bictegravir/Emtricitabine/Tenofovir (Bictegrav/Emtricit/Tenofov Ala Tablet) 1 tab PO BEDTIME [facility] Last Admin: 08/03/23 20:44 Dose: 1 tab Dextrose (Dextrose 50 % 25 Gm/50 Ml Syringe) 25 gm IVPUSH Q15M PRN; Protocol PRN Reason: per Hypoglycemia Standing Ord. Glucose (Glucose Gel 15 Gm Gel..Gram.) 15 gm PO Q15M PRN; Protocol PRN Reason: per Hypoglycemia Standing Ord. Hydromorphone HCl (Hydromorphone Hcl 1 Mg/Ml Syringe) 0.5 mg IVPUSH Q4H PRN; Protocol PRN Reason: Pain, Severe (Pain Scale 7-10) Dextrose/Sodium Chloride (D5ns) 1,000 mls @ 100 mls/hr IVCONT .Q10H [facility] Last Admin: 08/04/23 05:40 Dose: 100 mls/hr Insulin Human Lispro (Insulin Lispro 100 Unit/Ml 3 Ml Vial) 0 unit SUBCUT QIDACHS [facility]; Protocol Last Admin: 08/04/23 08:02 Dose: Not Given Magnesium Hydroxide (Milk Of Magnesia 30 Ml Oral.Susp) 30 ml PO DAILY PRN PRN Reason: Constipation Metoprolol Succinate (Metoprolol Succinate Er 50 Mg Tab.Er.24h) 50 mg PO BEDTIME [facility]; Protocol Last Admin: 08/03/23 20:44 Dose: 50 mg Metoprolol Succinate (Metoprolol Succinate Er 100 Mg Tab.Er.24h) 100 mg PO DAILY [facility]; Protocol Last Admin: 08/04/23 08:35 Dose: 100 mg Ondansetron HCl (Ondansetron Hcl 4 Mg/2 Ml Vial) 4 mg IVPUSH Q8H PRN PRN Reason: Nausea and Vomiting Oxycodone HCl (Oxycodone Hcl Immed Release 5 Mg Tablet) 5 mg PO Q4H PRN PRN Reason: Pain, Moderate(Pain Scale 4-6) Last Admin: 08/04/23 05:41 Dose: 5 mg Sodium Chloride (0.9 % Sodium Chloride Flush 3 Ml Syringe) 3 ml IVFLUSH QSHIFT [facility] Last Admin: 08/04/23 08:02 Dose: Not Given Zolpidem Tartrate (Zolpidem Tartrate 5 Mg Tablet) 5 mg PO BEDTIME PRN PRN Reason: Insomnia Home Medications Medication Instructions Recorded Confirmed Last Taken Type aspirin 81 mg chewable tablet 1 tab PO DAILY 08/02/23 08/02/23 08/02/23 History bictegravir 50 mg-emtricitabine 1 tab PO BEDTIME 08/02/23 08/02/23 08/01/23 History 200 mg-tenofovir alafenam 25 mg tablet (Biktarvy) dulaglutide 1.5 mg/0.5 mL 1.5 mg subcut FR 08/02/23 08/02/23 07/28/23 History subcutaneous pen injector (Trulicity) empagliflozin 12.5 mg-metformin 1 tab PO BID 08/02/23 08/02/23 08/02/23 History 1,000 mg tablet (Synjardy) glimepiride 2 mg tablet 4 mg PO DAILY 08/02/23 08/02/23 08/02/23 History metoprolol succinate 100 mg 100 mg PO DAILY 08/02/23 08/02/23 08/02/23 History tablet,extended release 24 hr metoprolol succinate 50 mg 50 mg PO BEDTIME 08/02/23 08/02/23 08/01/23 History tablet,extended release 24 hr rosuvastatin 40 mg tablet 40 mg PO BEDTIME 08/02/23 08/02/23 08/01/23 History ticagrelor 90 mg tablet (Brilinta) 90 mg PO BID 08/02/23 08/02/23 08/02/23 History Physical Exam 2 Vital Signs: Vital Signs: Last Vital Signs Temp 97.7 F 08/04/23 07:35 Pulse 78 08/04/23 07:35 Resp 18 08/04/23 07:35 BP 130/80 08/04/23 07:35 Pulse Ox 100 08/04/23 07:35 O2 Del Method Room Air 08/04/23 07:35 BMI result Body Mass Index 26.0 EXAM: GENERAL: The patient is well developed and nontoxic. VITAL SIGNS:see workflow HEENT: Nonicteric sclerae, PERRLA, EOMI. Oropharynx clear. Moist mucous membranes. Conjunctivae appear well perfused. No thyroid mass. CHEST: Chest wall is nontender. HEART: Regular rate and rhythm without murmurs. LUNGS: Clear to auscultation bilaterally. ABDOMEN: Soft, positive bowel sounds, mildly tender epigastrium, no organomegaly.no flank tenderness SKIN: No rash, no excessive bruising, petechiae, or purpura. NEUROLOGIC: Cranial nerves II-XII intact without motor/sensory deficit. psych- nml affect Results Labs 08/02/23 10:40 08/03/23 05:[address] scan - abdomen: Attestation: I personally reviewed and interpreted this imaging study as follows: My impression: gallstones, constipation, no pancreas stranding Assessment and Plan (1) Diarrhea: Status: Acute (2) Epigastric abdominal pain: Status: Acute Plan 1/ Epigastric pain with moderate stool burden -nml pancreas on imaging, ddx; symptomatic cholelithiasis, mild pancreatiis, gastritis from aspirin, GOO, underlying neoplasia PLAN: 1/ Since pt improving can bring him back for early o/p egd, colon 2/ will ask my office to contact his patient care specialist about proposed procedures, if can;t stop FLORENTINO then will do egd, colon whilst he is on these agents due to stent thrombosis risk 3/ok to give low dose PPi e.g pantoprazole 20 mg Time Spent With Patient Time: Total time managing care of this patient today ____ minutes. Procedures Date of Service Date of Service: 08/04/23
--- NOTE | 2023-08-04 10:41 | MHC.CLN ---
NUTRITION DIET=CLEAR LIQUIDS. ADDING SUPPLEMENT TID THAT IS APPROPRIATE FOR CLEAR LIQUIDS. SUPPLEMENT PROVIDES 750 KCALS, 27 G PROTEIN IF CONSUMED 100%.
--- NOTE | 2023-08-04 11:15 | P.PNGS_ITS ---
Subjective Subjective Date of Service: 08/04/23 Interval history: Patient evaluated this morning with his present. He is tolerating his diet. Still having loose stool. Feels that his abdomen is swollen/bloated. He has minimal abdominal pain. Physical Exam 2 Vital Signs: Vital Signs: Last Vital Signs Temp 97.7 F 08/04/23 07:35 Pulse 78 08/04/23 07:35 Resp 18 08/04/23 07:35 BP 130/80 08/04/23 07:35 Pulse Ox 100 08/04/23 07:35 O2 Del Method Room Air 08/04/23 07:35 BMI result Body Mass Index 26.0 GI: Other: Modestly distended abdomen. Nontender. No evidence of any guarding, rebound, rigidity. Objective Data Active Medications Acetaminophen (Acetaminophen 325 Mg Tablet) 650 mg PO Q6H PRN PRN Reason: Pain, Mild (Pain Scale 1-3) Last Admin: 08/03/23 20:54 Dose: 650 mg Documented By: MANUEL Al Hydroxide/Mg Hydroxide (Magnesium Hydrox/Alum Hydrox 30 Ml Oral.Susp) 30 ml PO Q4H PRN PRN Reason: Heartburn/Nausea Bictegravir/Emtricitabine/Tenofovir (Bictegrav/Emtricit/Tenofov Ala Tablet) 1 tab PO BEDTIME [facility] Last Admin: 08/03/23 20:44 Dose: 1 tab Documented By: MANUEL Dextrose (Dextrose 50 % 25 Gm/50 Ml Syringe) 25 gm IVPUSH Q15M PRN; Protocol PRN Reason: per Hypoglycemia Standing Ord. Glucose (Glucose Gel 15 Gm Gel..Gram.) 15 gm PO Q15M PRN; Protocol PRN Reason: per Hypoglycemia Standing Ord. Hydromorphone HCl (Hydromorphone Hcl 1 Mg/Ml Syringe) 0.5 mg IVPUSH Q4H PRN; Protocol PRN Reason: Pain, Severe (Pain Scale 7-10) Dextrose/Sodium Chloride (D5ns) 1,000 mls @ 100 mls/hr IVCONT .Q10H [facility] Last Admin: 08/04/23 05:40 Dose: 100 mls/hr Documented By: TAPAN Insulin Human Lispro (Insulin Lispro 100 Unit/Ml 3 Ml Vial) 0 unit SUBCUT QIDACHS [facility]; Protocol Last Admin: 08/04/23 08:02 Dose: Not Given Documented By: GRAHAM Non-Admin Reason: No Insulin Coverage Magnesium Hydroxide (Milk Of Magnesia 30 Ml Oral.Susp) 30 ml PO DAILY PRN PRN Reason: Constipation Metoprolol Succinate (Metoprolol Succinate Er 50 Mg Tab.Er.24h) 50 mg PO BEDTIME [facility]; Protocol Last Admin: 08/03/23 20:44 Dose: 50 mg Documented By: MANUEL Metoprolol Succinate (Metoprolol Succinate Er 100 Mg Tab.Er.24h) 100 mg PO DAILY [facility]; Protocol Last Admin: 08/04/23 08:35 Dose: 100 mg Documented By: GRAHAM Ondansetron HCl (Ondansetron Hcl 4 Mg/2 Ml Vial) 4 mg IVPUSH Q8H PRN PRN Reason: Nausea and Vomiting Oxycodone HCl (Oxycodone Hcl Immed Release 5 Mg Tablet) 5 mg PO Q4H PRN PRN Reason: Pain, Moderate(Pain Scale 4-6) Last Admin: 08/04/23 05:41 Dose: 5 mg Documented By: TAPAN Sodium Chloride (0.9 % Sodium Chloride Flush 3 Ml Syringe) 3 ml IVFLUSH QSHIFT [facility] Last Admin: 08/04/23 08:02 Dose: Not Given Documented By: GRAHAM Non-Admin Reason: IV Running Zolpidem Tartrate (Zolpidem Tartrate 5 Mg Tablet) 5 mg PO BEDTIME PRN PRN Reason: Insomnia Labs 08/02/23 10:40 08/03/23 05:33 Labs: Laboratory Results - last 24 hr 08/02/23 08/03/23 08/03/23 10:40 11:35 16:21 POC Glucose 159 H 100 C-React Prot High Sens 0.5 08/03/23 08/04/23 20:36 07:38 POC Glucose 101 124 H C-React Prot High Sens Procedures Date of Service Date of Service: 08/04/23 Progress Note: A&P Assessment and plan (1) Diarrhea: Status: Acute Plan At present, patient's symptoms have been for least the last 5 months time of abdominal bloating and loose stool. No acute surgical issues. Etiology is not biliary at this time. Awaiting GI input. 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 Advanced diet as tolerated, consider DC home with outpatient follow-up with his own supervisor commissary production. Time Spent With Patient Time: Total time managing care of this patient today ____ minutes. Quality Stroke Does the patient have a stroke diagnosis?: No VTE Prior VTE?: No VTE Risk Level:: Surgical - low VTE Device Contraindication: Treatment Not Indicated VTE Drug Contraindication: Treatment Not Indicated
[2023-08-04 11:16] LABS: Glucose, Whole Blood 225 mg/dL (60-115)
[2023-08-04] MEDS: Insulin Lispro 100 UNIT/ML 3 ML VIAL SUBCUT (13:21)
--- NOTE | 2023-08-04 14:26 | MHC.CM.PN ---
DP: PT IS MEDICALLY CLEARED FOR DC HOME, NO SERVICES. PT HAS OWN [facility] HOME
--- NOTE | 2023-08-07 12:36 | PM.DS ---
DS: Providers Provider Date of Service: 08/04/23 Date of admission: 08/02/23 19:05 Primary care physician: Mackenzie Díaz MD Attending physician on admission: Ej Godoy Consults: 08/02/23 19:05 Consult to Gastroenterology Routine Consulting Provider: [facility] [place] Gastroenterology Services Reason for consultation: gallstone pancreatitis Attending physician on discharge: Ej Godoy DS: Diagnosis Discharge Diagnosis (1) Diarrhea: Status: Acute (2) Epigastric abdominal pain: Status: Acute DS: Summary Hospital Course Hospital Course: HPI AT ADMISSION: Javid Salas is a 53 year old male with PMH of CKD, diabetes mellitus, CAD with stent placement on Brilinta, HIV on Biktarvy and currently undetectable who presented to the ED with c/o abdominal pain and diarrhea. He reports he has had interemittent diarrhea since February 2023 with left sided abdominal pain. He reports that over the past few days, his pain has worsened in severity and he also developed epigastric abdominal pain. He reports 5-6 episodes of diarrhea a day over the past few days and experienced some dizziness. He has occasionally noted blood within his stool. He has never had a colonoscopy before. He reportedly has a GI doctor at [facility] who has been refusing to see him. Work up in the ED included CBC, BMP and LFTs which was significant for Cr of 1.8 improved to 1.41 and ALT 55, lipase 288. CT abd/pelvis and US that showed gallstones, contracted gallbladder without wall thickening or fluid, no biliary ductal dilatation. This morning, he feels improved. He reports the epigastric pain has resolved and he has mild left sided abdominal pain. He is tolerating his clear liquids without nausea or vomiting. He denies any associated fever, chills, ETOH use. HOSPITAL COURSE: He was admitted to the surgical service for further work up. His epigastric pain resolved. His diet was advanced to clear liquids. GI was consulted for input regarding diarrhea, BRBPB and colonoscopy. He felt the epigastric pain was possible secondary to gastritis vs resolved pancreatitis. He is to follow up as outpatient with Dr. Valdovinos for EGD/colonoscopy. The patient was tolerating clear liquids without worsening abdominal pain and was advanced to solids. He was reassessed and was tolerating a solid diet. He was discharged to home in stable condition with outpatient follow up with Dr. Valdovinos. Status at Discharge Functional status at discharge: independent ambulation Overall status at discharge: patient is progressing back to baseline Time Spent with Patient Time attestation: Total time managing care of this patient today ____ minutes. Discharge coordination time: Less than 30 minutes Quality: Safe Use of Opioids Does Pt have an Active Cancer Diagnosis on the Problem List?: No Quality: Stroke Does the patient have a stroke diagnosis?: No Physical Exam Vital Signs: Vital Signs: Last Vital Signs Temp 97.7 F 08/04/23 07:35 Pulse 78 08/04/23 07:35 Resp 18 08/04/23 07:35 BP 130/80 08/04/23 07:35 Pulse Ox 100 08/04/23 07:35 O2 Del Method Room Air 08/04/23 07:35 BMI result Body Mass Index 26.0 Const: General: comfortable, no acute distress and alert Orientation/consciousness: patient oriented x3 GI: Inspection: Yes distended Palpation (GI): Soft to palpation, nontender, no guarding and not rigid Skin: General skin exam: no rashes or lesions noted and no jaundice Neuro: General: patient oriented x3 Discharge Plan Discharge Anticipated Discharge Date/Time: 08/04/23 15:21 Patient Disposition: Home, Self-Care Discharge Diagnosis: diarrhea, pancreatitis Referrals: Cindy Valdovinos MD [Physician] - 2 Weeks Mackenzie Díaz MD [Primary Care Provider] - 1 Week Discharge Medications: Continued metoprolol succinate 50 mg tablet extended release 24 hr 50 mg PO BEDTIME glimepiride 2 mg tablet 4 mg PO DAILY aspirin 81 mg tablet,chewable 1 tab PO DAILY rosuvastatin 40 mg tablet 40 mg PO BEDTIME Brilinta 90 mg tablet 90 mg PO BID Trulicity 1.5 mg/0.5 mL pen injector 1.5 mg subcut FR Synjardy 12.5-1,000 mg tablet 1 tab PO BID Biktarvy 50-200-25 mg tablet 1 tab PO BEDTIME metoprolol succinate 100 mg tablet extended release 24 hr 100 mg PO DAILY Discharge Orders: Discharge Order (Routine); Ordered 08/04/23 Ordered By: Misty Barth Diet: Diabetic diet Activity on Discharge: As tolerated Stand Alone Forms: Patient Portal Discharge page Activity Restrictions/Additional Instructions: Follow up with Dr. Valdovinos from GI for outpatient colonoscopy. Call Your Doctor If: ? ? -Your temperature exceeds 101.5? F? ? ? -You experience excessive pain or swelling ? ? -You have an unexpected reaction to medication ? ? -You experience continued vomiting/nausea Care Plan Goals: Return to baseline health and resume normal activities. Resolution of abdominal pain and diarrhea. Health Concerns: acute pancreatitis chronic diarrhea bright red blood in stool Plan of Treatment: Observation, supportive treatment F/u with GI for outpatient colonoscopy Assessment: Improved, stable Discharge Date/Time: 08/04/23 15:00
== END 2023-08-04 15:00 | disposition home or self-care (01) | DRG 241 ==
LOC: HO.ED 16:52 → HO.EDOVER 19:15 → HO.S3 08-03 17:43
PROVIDERS: Physician Assistant Medical; Admitting Provider Surgery; Emergency Provider Student in an Organized Health Care Education/Training Program; PCP Internal Medicine; Visit Provider Surgery
DX: K29.71 Gastritis, unspecified, with bleeding (principal); K85.10 Biliary acute pancreatitis without necrosis or infection; N17.9 Acute kidney failure, unspecified; E11.9 Type 2 diabetes mellitus without complications; E86.0 Dehydration; I25.10 Atherosclerotic heart disease of native coronary artery without angina pectoris; Z21 Asymptomatic human immunodeficiency virus [HIV] infection status; Z95.5 Presence of coronary angioplasty implant and graft; Z79.85 Long-term (current) use of injectable non-insulin antidiabetic drugs; Z79.899 Other long term (current) drug therapy
CPT/HCPCS: 36415; 74176; 76705; 80048; 80053; 80061; 81001; 82248; 82947; 83690; 83735; 84484; 85025; 85652; 86141; 87493; 87507; 93005; 99221; 99285

== ENCOUNTER → 2023-08-02 19:05 | Outpatient (BNV) | payer OTHER, SELFPAY | PROVIDERS: Admitting Provider Surgery; Emergency Provider Student in an Organized Health Care Education/Training Program; PCP Internal Medicine; Visit Provider Internal Medicine Gastroenterology | DX: R19.7 Diarrhea, unspecified (principal); R10.13 Epigastric pain | CPT/HCPCS: 99222 ==

== ENCOUNTER → 2023-08-02 19:05 | Outpatient (BNV) | payer OTHER, SELFPAY | PROVIDERS: Admitting Provider Surgery; Emergency Provider Student in an Organized Health Care Education/Training Program; PCP Internal Medicine; Visit Provider Physician Assistant Surgical | DX: R19.7 Diarrhea, unspecified (principal) | CPT/HCPCS: 99222; 99232 ==